=== PATIENT | male | born 1960 | race Hispanic/Latino ===

== ENCOUNTER 2018-03-14 07:13 | Inpatient (IN) | payer OTHER, SELFPAY ==
[2018-03-14 07:40] LABS: #Basophils 0.1 thou/uL (0.0-0.2); #Eosinphils 0.4 thou/uL (0.0-0.7); #Lymphocytes 4.4 thou/uL (1.20-3.40); #Monocytes 0.5 thou/uL (0.11-0.59); #Neutrophils 4.1 thou/uL (1.40-6.50); %Basophils 1.3 % (0.0-1.0); %Eosinophils 3.8 % (0.0-10.0); %Lymphocytes 46.3 % (21.0-51.0); %Monocytes 5.3 % (0.0-10.0); %Neutrophils 43.3 % (42.0-75.0); Hemoglobin 15.5 g/dL (14.0-18.0); Mean Corpuscular HGB CONC 34.6 g/dL (32.0-36.0); Mean Corpuscular Hemoglobin 32.3 pg (27.0-31.0); Mean Corpuscular Volume 93.5 fL (78.0-98.0); Mean Platelet Volume 8.9 fL (7.4-10.4); Platelet Count 196 thou/uL (130-400); RBC Distribution Width 12.7 % (11.5-14.5); Red Blood Cell (RBC) Count 4.79 mill/uL (4.70-6.10); White Blood Cell (WBC) Count 9.5 thou/uL (4.8-10.8)
[2018-03-14 07:45] LABS: PTT 30.2 SEC (22.9-36.1); Prothrombin Time 13.4 SEC (12.0-14.7)
[2018-03-14 08:00] LABS: ALT (SGPT) 22 U/L (8-55); AST (SGOT) 28 U/L (5-34); Albumin 3.9 g/dL (3.5-5.0); Alcohol Less than 10 mg/dL (Less than 10); Alkaline Phosphatase 63 U/L (40-150); Anion Gap 11 mmol/L (10-20); BUN (Urea Nitrogen) 17 mg/dL (8.9-20.6); Bilirubin, Total 0.6 mg/dL (0.2-1.2); Calc. Creatinine Clearance 0 mL/min (70-130); Calcium 8.6 mg/dL (7.8-10.44); Carbon Dioxide 24 mmol/L (22-29); Chloride 107 mmol/L (98-107); Estimated GFR-MDRD Greater than 90; Globulin 2.7 g/dL (2.4-3.5); Glucose 170 mg/dL (70-105); Lipase 52 U/L (8-78); Potassium 3.9 mmol/L (3.5-5.1); Protein, Total 6.6 g/dL (6.0-8.3); Sodium 138 mmol/L (136-145)
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
[2018-03-14] MEDS ORDERED: Lidocaine 1% w/Epinephrine 1:100K 20 ML VIAL ONE (09:17)
[2018-03-14] MEDS ORDERED: Morphine 4 MG/ML VIAL ONE (09:17)
[2018-03-14] MEDS ORDERED: Ondansetron HCl/PF 4 MG/2 ML Vial ONE (09:17)
[2018-03-14] MEDS ORDERED: Ondansetron ODT 4 MG TAB PO PRN (10:05)
[2018-03-14] MEDS ORDERED: Ondansetron HCl/PF 4 MG/2 ML Vial IVP PRN (10:05)
[2018-03-14] MEDS ORDERED: Dextrose 50% Abboject 50 ML SYRINGE SLOW IVP PRN (10:05)
[2018-03-14] MEDS ORDERED: Dextrose 5% in Water 1,000 ML IV PRN (10:05)
[2018-03-14] MEDS ORDERED: CEFAZOLIN 1 GM VIAL ONE (10:11)
[2018-03-14] MEDS ORDERED: Adacel (T-DAP) 0.5 ML VIAL ONE (10:28)
[2018-03-14] MEDS ORDERED: CEFAZOLIN/Water 2 GM/20 ML SYRINGE ONE (10:28)
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
[2018-03-14 12:10] VITALS: BMI 43.1
[2018-03-14] MEDS: HYDROcodone/Acetaminophen 10/325 mg Tablet PO SCH ×3 (13:49→23:54)
[2018-03-14] MEDS ORDERED: ISOVUE-370 76%-LOCM 1 ML ONE (14:05)
[2018-03-14] MEDS: Senokot 8.6 MG TAB PO SCH (21:23)
[2018-03-15 04:57] LABS: Anion Gap 11 mmol/L (10-20); BUN (Urea Nitrogen) 14 mg/dL (8.4-25.7); Calc. Creatinine Clearance 192 mL/min (70-130); Calcium 8.3 mg/dL (7.8-10.44); Carbon Dioxide 24 mmol/L (22-29); Chloride 105 mmol/L (98-107); Estimated GFR-MDRD Greater than 90; Glucose 101 mg/dL (70-105); Sodium 136 mmol/L (136-145)
[2018-03-15] MEDS: HYDROcodone/Acetaminophen 10/325 mg Tablet PO SCH ×2 (05:09→11:15)
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
[2018-03-15] MEDS ORDERED: Polyethylene Glycol 3350 17 GM Packet PO SCH (09:00)
[2018-03-15] MEDS: Senokot 8.6 MG TAB PO SCH (09:41)
--- NOTE | 2018-03-15 12:32 | CT ---
PRELIMINARY REPORT/[facility]/EMERGENTY AFTER-HOURS PROCEDURE CT Head Without Intravenous Contrast CLINICAL HISTORY: 57 years old, male; Condition or disease; Other: Tbi; Patient HX: Follow up tbi TECHNIQUE: Axial computed tomography images of the head/brain without intravenous contrast. COMPARISON: No relevant prior studies available. FINDINGS: Nasal bone deformities which are presumably old injuries. Please correlate clinically. No definite acute skull fracture. Included paranasal sinuses are essentially clear. Prior left craniotomy. No acute intracranial hemorrhage or mass effect. Ventricle size is normal for age. Small area of chronic encephalomalacia in the high left posterior parietal/occipital region. No definite acute infarct by CT. IMPRESSION: No acute intracranial hemorrhage or mass effect. Other findings discussed above. Eventual comparison with any available prior exams may be helpful. Thank you for allowing us to participate in the care of your patient. Dictated and Authenticated by: Jesse Clark MD 03/15/2018 5:15 AM Central Time ([place] & [place]) FINAL REPORT EMERGENCY AFTER HOURS CT HEAD NONCONTRAST: Date: 03/15/18 Time: 0455 hours HISTORY: Head injury. Follow-up. COMPARISON: 03/14/18. FINDINGS: The very small left subdural hematoma on the previous exam is not reliably demonstrated on the curren t study. On image #25, a small remnant may be present, although it could also be perceived as an champ cent left frontal gyrus. No new areas of hemorrhage are evident. Findings agree with the preliminary report by Carmen. POS: [facility]
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
[2018-03-15 15:25] VITALS: BP 138/82; TEMP 98.7
[2018-03-15] MEDS ORDERED: traMADol HCl 50 MG TAB PO PRN ×2 (15:58)
[2018-03-15] MEDS ORDERED: Acetaminophen 500 MG TAB PO SCH (16:00)
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
== END 2018-03-15 17:15 | disposition home or self-care (01) | DRG 86 ==
LOC: EDBD 07:13 → ERS 07:13 → IMCU/EMU 09:10
PROVIDERS: ADMIT Surgery; ATTEND Surgery
PROC: 0HQ3XZZ Repair Left Ear Skin, External Approach (ICD-10-PCS; principal; 2018-03-14)
PROC: 0HQ1XZZ Repair Face Skin, External Approach (ICD-10-PCS; 2018-03-14)
DX: S06.5X0A Traumatic subdural hemorrhage without loss of consciousness, initial encounter (principal); Z68.41 Body mass index [BMI] 40.0-44.9, adult; M25.512 Pain in left shoulder; E11.9 Type 2 diabetes mellitus without complications; S01.412A Laceration without foreign body of left cheek and temporomandibular area, initial encounter; S01.312A Laceration without foreign body of left ear, initial encounter; V49.49XA Driver injured in collision with other motor vehicles in traffic accident, initial encounter; Y92.410 Unspecified street and highway as the place of occurrence of the external cause; S00.03XA Contusion of scalp, initial encounter; G89.11 Acute pain due to trauma; E66.01 Morbid (severe) obesity due to excess calories
CPT/HCPCS: 12011; 12052; 36415; 70450; 71260; 72125; 74177; 80048; 80053; 80307; 83690; 85025; 85610; 85730; 90471; 90715; 93005; 94640; 96374; 96375; G0390; G8978-GP-CJ; G8979-GP-CJ; G8980-GP-CJ; G8987-GO-CJ; G8988-GO-CI; J0690; J2001; J2270; J2405; J7620